=== PATIENT | male | born 1965 | race Caucasian/White ===

== ENCOUNTER 2020-02-27 12:14 | Emergency (ER) | payer OTHER, SELFPAY ==
[2020-02-27 12:30] VITALS: BP 139/88; PULSE 67; RESP 20; TEMP 36.6; O2SAT 98
--- NOTE | 2020-02-27 12:39 | ED.URI ---
HPI - URI/Sore Throat General Chief Complaint: Upper Respiratory Infection Stated Complaint: COVID Symptoms Time Seen by Provider: 02/27/20 12:40 Source: patient and RN notes reviewed Mode of arrival: ambulatory Limitations: no limitations History of Present Illness HPI Narrative: 53-year-old male presents concern for 1-1/2-day history of body aches, chills, sweats, sore throat, cough. Reports he is exposed to Covid, he works in the medical field. He denies any loss of sense of taste or smell, shortness of breath. Reports ibuprofen helps with his symptoms slightly. MD elicited complaint: cough Related Data Home Medications Medication Instructions Recorded Confirmed atorvastatin 80 mg PO HS 02/27/20 02/27/20 fluoxetine 20 mg PO BID 02/27/20 02/27/20 lisinopril 20 mg PO DAILY 02/27/20 02/27/20 omeprazole 20 mg PO DAILY 02/27/20 02/27/20 pregabalin 200 mg PO BID 02/27/20 02/27/20 Allergies Allergy/AdvReac Type Severity Reaction Status Date / Time No Known Allergies Allergy Mild Verified 02/27/20 12:49 Review of Systems Review of Systems: Narrative: CONSTITUTIONAL: Reports malaise, chills, sweats. Denies fever. EYES: Denies visual changes, redness, or discharge. ENT: Denies rhinorrhea, congestion, sinus pain, otalgia. Reports sore throat. CARDIOVASCULAR: Denies chest pain, palpitations, or edema. RESPIRATORY: Reports cough. Denies dyspnea. GASTROINTESTINAL: Denies abdominal pain, vomiting, diarrhea. Reports nausea SKIN: Denies rash or itching. MUSCULOSKELETAL: Reports myalgia. NEUROLOGIC: Reports headache. All systems reviewed & are unremarkable except as noted in HPI and below PMFSH Comments At time of signature, agree with nursing past medical, surgical, social and family history. There is no relevant family history pertinent to the presenting complaint Exam Narrative: Exam Narrative: GENERAL: Well-appearing, well-nourished, and in no acute distress. HEAD: Normocephalic EYES: PERRLA, conjunctivae clear ENT: Nares clear. Mucous membranes moist. TM pearly tafoya with dull light reflex bilaterally; no tragal tenderness. Oropharynx erythematous without lesions. Tonsils enlarged and without exudate, no drooling, no hoarseness, no trismus, uvula midline. NECK: Supple. No lymphadenopathy CHEST: Clear to auscultation, breath sounds equal. No wheezing, rhonchi, rales, or stridor. No respiratory distress, speaks in full sentences. HEART: Regular rate and rhythm. No murmur heard. SKIN: Warm, dry, no rash. NEURO: Alert and oriented x3. PSYCH: Normal mood and affect Course Course Emergency Course: Patient is aware of diagnosis, understands and agrees to treatment plan. Anticipatory guidance given. Patient agrees to follow-up as directed and is aware of reasons to seek care at the emergency department. Portions of this record may have been created with voice recognition software Vital Signs Vital signs: Vital Signs Temperature 98 F 02/27/20 12:30 Pulse Rate 67 02/27/20 12:30 Respiratory Rate 20 02/27/20 12:30 Blood Pressure 139/88 02/27/20 12:30 Pulse Oximetry 98 02/27/20 12:30 Temperature 98 F 02/27/20 12:58 Pulse Rate 67 02/27/20 12:58 Respiratory Rate 20 02/27/20 12:58 Blood Pressure 139/88 02/27/20 12:58 Pulse Oximetry 98 02/27/20 12:58 Reviewed. Pt has been instructed to follow up with his primary care provider within the next week regarding his elevated blood pressure today. MDM - URI/Sore Throat MDM Narrative Medical decision making narrative: Differential diagnosis considered: Villalobos virus, strep pharyngitis, allergic rhinitis, upper respiratory tract infection, sinusitis, rhinosinusitis, nasopharyngitis. viral pharyngitis, otitis media, otitis externa, pneumonia, bronchitis, viral cough syndrome, viral syndrome, and influenza. Exam findings show no acute concerns or changes; patient is non-toxic appearing and is in no distress. Patient is appropriate for outpatient treatment an
[2020-02-27 12:58] VITALS: BP 139/88; PULSE 67; RESP 20; TEMP 36.6; O2SAT 98
== END 2020-02-27 13:02 | disposition home or self-care (01) ==
PROVIDERS: Emergency Provider Nurse Practitioner; PCP Student in an Organized Health Care Education/Training Program
DX: B34.9 Viral infection, unspecified (principal); Z20.828 Contact with and (suspected) exposure to other viral communicable diseases; E78.00 Pure hypercholesterolemia, unspecified; I10 Essential (primary) hypertension; K21.9 Gastro-esophageal reflux disease without esophagitis; G62.9 Polyneuropathy, unspecified
CPT/HCPCS: 87081; 87880; 99213; G0463